=== PATIENT | female | born 1975 | race Caucasian/White ===

== ENCOUNTER 2017-01-25 10:20 | Emergency (ER) | payer BC ==
[~2017-01-25] VITALS: Ht 175.3 cm; Wt 72.6 kg
[2017-01-25 10:35] VITALS: BP 125/48
--- NOTE | 2017-01-25 11:18 | PHYS DOC ---
General Chief Complaint: SORE THROAT Stated Complaint: SORE THROAT, COUGH Time Seen by MD: 10:28 Source: patient, old records Exam Limitations: no limitations Problems: History of Present Illness Initial Comments Pt is 41/F to ED c/o sore throat, cough. Pt states she's had dry cough and sore throat for the past 4 days. Sore throat limiting solid food intake pt still drinking, no difficulty with liquids/sob/ barillas. Subjective fevers with malaise/myalgias no prearrival treatment. Pt still smoking, recently from spouse and lots of stress but wants to try to quit in future. Timing/Duration: last week Severity: moderate Location: throat Prearrival Treatment: over the counter meds Modifying Factors: worse with coughing, improves with rest Associated Symptoms: cough, fever, malaise, nasal congestion/drainage, poor solids intake, sore throat Allergies: Coded Allergies: red dye (Verified Allergy, Severe, 01/25/17) acetaminophen (Verified Allergy, Unknown, 01/25/17) Past Medical History Medical History: no pertinent history Surgical History: noncontributory (hysterectomy) Social History Smoker: cigarettes Alcohol: occasionally Drugs: none Constitutional: see HPI Ears: denies dizziness, denies pain, denies tinnitus Nose: congestiondenies epistaxis, denies pain Throat: see HPIdenies neck stiffness Respiratory: coughdenies shortness of breath Cardiovascular: denies chest pain, denies palpitations Gastrointestinal: denies diarrhea, denies nausea, denies vomiting Neurological: headachedenies numbness, denies paresthesia Physical Exam General Appearance: WD/WN, no apparent distress Eyes: bilateral eye EOMI, bilateral eye PERRL, bilateral eye normal inspection Nose: normal inspection Mouth/Throat: other (tonsils 3+ w/exudate airway preserved, MMM) Neck: supple, trachea midline, lymphadenopathy (R), lymphadenopathy (L) Cardiovascular/Respiratory: normal breath sounds, no respiratory distress 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 Departure Time of Disposition: 11:37 Disposition: 01 HOME, SELF-CARE Diagnosis: tonsilliltis, tobaccoism Condition: GOOD Patient Instructions: Smoking Cessation, Tonsillitis Additional Instructions: Rest, no strenuous activity. Work excuse 01/26-. Stop smoking, seek medical assistance if necessary. Aggressive hydration with gatorade, water. OTC ibuprofen and analgesic throat sprays as needed. Rx: clindamycin, prednisone, guaif/cod syrup Follow up with your doctor in 3-4 days if no improvement. Return to ED with new or changing symptoms. BETZAIDA DALAL DO Jan 25, 2017 11:18
[2017-01-25] MEDS ORDERED: CLIN300C86 PO (11:37)
[2017-01-25] MEDS ORDERED: GUAI118L13 PO (11:37)
[2017-01-25] MEDS ORDERED: PRED20TA PO (11:37)
[2017-01-25] MEDS ORDERED: PREDNISONE 10 MG TABLET PO ONE (12:00)
[2017-01-25] MEDS ORDERED: CLINDAMYCIN HCL 150 MG CAPSULE PO ONE (12:00)
== END 2017-01-25 12:00 | disposition home or self-care (01) ==
LOC: ER 10:20
DX: J03.90 Acute tonsillitis, unspecified (principal); R53.81 Other malaise; F17.210 Nicotine dependence, cigarettes, uncomplicated; Z90.710 Acquired absence of both cervix and uterus; Z88.6 Allergy status to analgesic agent
CPT/HCPCS: 87070; 87880; 99283; J7512